=== PATIENT | male | born 1995 | race African-American/Black ===

== ENCOUNTER 2018-08-02 11:54 | Emergency (ER) | payer OTHER, SELFPAY ==
[2018-08-02 11:58] VITALS: BP 147/88; PULSE 75; RESP 16; TEMP 36.5; O2SAT 99; BMI 19.3
[2018-08-02 12:19] LABS: Bacteria Urine None Seen; RBC Urine None Seen (0-5/HPF)
[2018-08-02 12:34] LABS: Culture Indicated Urine Specimen Cultured; WBC Urine 5-10/HPF (0-5/HPF)
--- NOTE | 2018-08-02 13:03 | ED_ITS ---
HPI - Male Genitourinary <HOWIE Velasquez - Last Filed: 08/02/18 14:28> General Chief complaint: Urogenital-Male Stated complaint: STD Time Seen by Provider: 08/02/18 12:19 Source: patient Mode of arrival: ambulatory Limitations: no limitations History of Present Illness HPI Narrative: The patient is a 22-year-old male nonsmoker who presents with a chief complaint of concern for sexually transmitted infection. He states he was at home in [place] and had unprotected sex with his ex girlfriend. Since then he states that his urine has changed collar and he has noticed some creamy discharge from his penis. He denies any fevers nausea vomiting diarrhea abdominal pain dysuria urgency or frequency. He states he is worried about Chlamydia or gonorrhea. He states that his ex-girlfriend has also reported some urinary changes. He denies any testicular pain. He denies any other sexual partners since his possible exposure. Related Data Home Medications Medication Instructions Recorded Confirmed No Known Home Medications 08/02/18 08/02/18 Allergies Allergy/AdvReac Type Severity Reaction Status Date / Time No Known Drug Allergies Allergy Verified 08/02/18 12:02 Review of Systems <HOWIE Velasquez - Last Filed: 08/02/18 14:28> Review of Systems GENERAL: Denies chills, fatigue, malaise, fever, sweats. HEENT: Denies sinus pain, ear pain, sore throat, difficulty swallowing, dizziness. RESPIRATORY: Denies dyspnea, cough, wheezing, hemoptysis, sputum. CARDIOVASCULAR: Denies chest pain, palpitations, orthopnea, edema, GASTROINTESTINAL: Denies nausea, vomiting, abdominal pain, diarrhea, constipation, melena. : See HPI MUSCULOSKELETAL: denies weakness, joint pain, or bony pain SKIN: Denies rash, skin lesions, or other NEUROLOGIC: Denies weakness, headache, numbness, change in speech, confusion, seizures, incoordination. PSYCHIATRIC: No concerning psychosocial issues. 12 point review of systems is negative except for those stated above PFSH <HOWIE Velasquez - Last Filed: 08/02/18 14:28> Social History Smoking Status: Never smoker Social History Smoking Status: Never smoker Exam <HOWIE Velasquez - Last Filed: 08/02/18 14:28> Narrative Exam Narrative: GENERAL: This is a well-nourished, well-developed patient, no acute distress HEAD: Atraumatic. Normocephalic. No temporal or scalp tenderness. EYES: Pupils equal round and reactive. Extraocular motions intact. No scleral icterus. No injection or drainage. ENT: Nose without bleeding, purulent drainage or septal hematoma. Throat without erythema, tonsillar hypertrophy or exudate. Uvula midline. Airway patent. NECK: Trachea midline. No JVD or lymphadenopathy. Supple, nontender, no meningeal signs. CARDIOVASCULAR: Regular rate and rhythm without murmurs, gallops, or rubs. RESPIRATORY: Clear to auscultation. Breath sounds equal bilaterally. No wheezes, rales, or rhonchi. No cough. No increased respiratory effort. GASTROINTESTINAL: Abdomen soft, non-tender, nondistended. No hepato- splenomegaly, or palpable masses. No guarding. Active bowel sounds. EXTREMITIES: No clubbing, cyanosis, or edema. No joint tenderness, effusion, or edema noted. BACK: Nontender without deformity or crepitance. No flank tenderness. NEURO: AOx3. SKIN: No rash or erythema. : exam performed with Bryan MATHUR fire claims adjuster. No visible penile discharge. No pain to testicular palpation. No rashes or ulcerations noted Initial Vital Signs Initial Vital Signs: Vital Signs Temperature 97.7 F 08/02/18 11:58 Pulse Rate 75 08/02/18 11:58 Respiratory Rate 16 08/02/18 11:58 Blood Pressure 147/88 H 08/02/18 11:58 Pulse Oximetry 99 08/02/18 11:58 <Sharyn Hancock DO - Last Filed: 08/05/18 21:41> Initial Vital Signs Initial Vital Signs: Vital Signs Temperature 97.7 F 08/02/18 11:58 Pulse Rate 75 08/02/18 11:58 Respiratory Rate 16 08/02/18 11:58 Blood Pressure 147/88 H 08/02/18 11:58 Pulse Oximetry 99 08/02/18 11:58 Course <HOWIE Velasquez - Last Filed: 08/02/18 14:28> Orders Ordered: Discontinued Medications Azithromycin (Zithromax) 1,000 mg PO NOW ONE Stop: 08/02/18 13:41 Last Admin: 08/02/18 14:09 Dose: 1,000 mg Ceftriaxone Sodium (Rocephin) 250 mg IM NOW ONE Stop: 08/02/18 13:41 Last Admin: 08/02/18 14:11 Dose: 250 mg Vital Signs - 8 hr 08/02/18 11:58 08/02/18 13:35 Temperature 97.7 F 98.5 F Pulse Rate 75 68 Respiratory Rate 16 16 Blood Pressure 147/88 H Blood Pressure [Right Arm] 104/82 Pulse Oximetry 99 100 <Sharyn Hancock DO - Last Filed: 08/05/18 21:41> Orders Ordered: Discontinued Medications Azithromycin (Zithromax) 1,000 mg PO NOW ONE Stop: 08/02/18 13:41 Last Admin: 08/02/18 14:09 Dose: 1,000 mg Ceftriaxone Sodium (Rocephin) 250 mg IM NOW ONE Stop: 08/02/18 13:41 Last Admin: 08/02/18 14:11 Dose: 250 mg Vital Signs - 8 hr 08/02/18 11:58 08/02/18 13:35 Temperature 97.7 F 98.5 F Pulse Rate 75 68 Respiratory Rate 16 16 Blood Pressure 147/88 H Blood Pressure [Right Arm] 104/82 Pulse Oximetry 99 100 MDM - Male Genitourinary <HOWIE Velasquez - Last Filed: 08/02/18 14:28> Lab Data Lab Results 08/02/18 08/02/18 Range/Units 12:10 12:30 Urine RBC None seen (0-5/HPF) Urine WBC 5-10/hpf H (0-5/HPF) Urine Bacteria None seen (None) Ur Culture Indicated? Specimen cultured Ur Chlamydia DNA (PCR) Detected H N gonorrhoeae DNA (PCR) Not detected Urine Dip Bedside Urine Glucose Negative Bedside Urine Bilirubin - Negative Bedside Urine Ketone - Negative Urine Specific [place] 1.010 Bedside Urine Occult Blood - Negative Bedside Urine pH 8.0 Bedside Urine Protein - Negative Bedside Urine Urobilinogen - Negative Bedside Urine Nitrite - Negative Bedside Urine Leukocytes ++ 125 Esterase MDM Narrative Medical decision making narrative: The patient is a 22-year-old male who presents with penile discharge and concerned about sexually transmitted infections. A urine was obtained and gonorrhea chlamydia testing was sent. Given the long duration of time to wait for test results, I offered to treat the patient then call him with results. He is nontoxic-appearing in the emergency department and acting well. The patient later came back positive for Chlamydia. I informed of this, encourage safe sex practices and contacting his sexual partners. Patient has no questions or concerns upon discharge. Patient plans on following up with primary care provider. I encouraged coming back to the emergency department for any acute concerns. <Sharyn Hancock DO - Last Filed: 08/05/18 21:41> Lab Data Lab Results 08/02/18 08/02/18 Range/Units 12:10 12:30 Urine RBC None seen (0-5/HPF) Urine WBC 5-10/hpf H (0-5/HPF) Urine Bacteria None seen (None) Ur Culture Indicated? Specimen cultured Ur Chlamydia DNA (PCR) Detected H N gonorrhoeae DNA (PCR) Not detected Urine Dip Bedside Urine Glucose Negative Bedside Urine Bilirubin - Negative Bedside Urine Ketone - Negative Urine Specific [place] 1.010 Bedside Urine Occult Blood - Negative Bedside Urine pH 8.0 Bedside Urine Protein - Negative Bedside Urine Urobilinogen - Negative Bedside Urine Nitrite - Negative Bedside Urine Leukocytes ++ 125 Esterase Discharge Plan Departure Patient Disposition: Home Clinical Impression: Contact with and (suspected) exposure to infections with a predominantly sexual mode of transmission, Chlamydia Discharge Date/Time: 08/02/18 14:30 Interventions: ED Discharge Assessment Last Done: 08/02/18 14:29 Instructions: Facts About Sexually Transmitted Infections, How to Detect and Treat STDs, Chlamydia: The Silent STD, DI for Gonorrhea, DI for Chlamydia Activity Restrictions/Additional Instructions: Given your symptoms, we elected to treat you for gonorrhea and chlamydia. I will call you with your test results. We also have a urine culture pending at this point time. Please follow up with primary care provider as we discussed, I recommend that you be tested for other sexually transmitted infections as well. Please come back to the emergency department for any acute concerns such as chest pain, shortness of breath, inability keep down fluids etc. Prescriptions: No Action No Known Home Medications RF: 0 Referrals: Jacoby Walters [Primary Care Provider] - <Sharyn Hancock DO - Last Filed: 08/05/18 21:41> Cosign ED Attending Cosignature Attestation: I was immediately available in the department for consultation. Documentation has been reviewed. I agree with assessment and plan.
[2018-08-02 13:35] VITALS: BP 104/82; PULSE 68; RESP 16; TEMP 36.9; O2SAT 100
[2018-08-02] MEDS: AZITHROMYCIN 250 MG TABLET 1000 MG PO (14:09)
[2018-08-02 14:10] LABS: Urine N gonorrhoeae NOT DETECTED
[2018-08-02] MEDS: cefTRIAXone 500 MG VIAL 250 MG IM (14:11)
[2018-08-02 14:22] LABS: Urine Chlamydia DETECTED
[2018-08-02 14:29] VITALS: BP 113/78; PULSE 65; RESP 16; TEMP 36.9; O2SAT 100
== END 2018-08-02 14:30 | disposition home or self-care (01) ==
PROVIDERS: Emergency Medicine; Emergency Provider Nurse Practitioner Family; PCP General Practice
DX: A74.9 Chlamydial infection, unspecified (principal); Z20.2 Contact with and (suspected) exposure to infections with a predominantly sexual mode of transmission
CPT/HCPCS: 81003; 81015; 87086; 87491; 87591; 96372; 99283; J0696

== ENCOUNTER 2019-05-19 20:59 | Emergency (ER) | payer OTHER, SELFPAY ==
[2019-05-19 21:09] VITALS: BP 123/73; PULSE 61; RESP 16; TEMP 36.7; O2SAT 100
--- NOTE | 2019-05-19 23:53 | ED.BACK ---
HPI - Back Pain/Injury General Chief Complaint: Back Pain/Injury Stated Complaint: back pain Time Seen by Provider: 05/19/19 23:51 Source: patient and other (Friend at bedside) Mode of arrival: Ambulatory Limitations: no limitations History of Present Illness HPI Narrative: This is a 23-year-old male comes emergency department with complaint of low back pain. Patient states little bit more on the right than left but is on both sides. He states it does not radiate down his legs. He denies any fevers. He denies any bowel or bladder incontinence, he denies any saddle anesthesia. He denies any numbness, weakness or tingling. States that he was playing basketball several days ago and noticed a little bit of tightness. He also often bends and lifts heavy equipment on a frequent basis although he does not recall any particular event that increased his back pain or caused it. He has not really had any back issues in the past. He states movement does make it worse. He has not tried anything at home for pain. He denies any other medical issues, no prior surgeries, no allergies to medications. States he has a right knee and has been told that it is ?bone on bone? and that if he continued to have problems to return for recheck. He states that does sometimes hurt and might changes gait. Related Data Previous Rx's Medication Instructions Recorded cyclobenzaprine 10 mg PO TID PRN #10 tab 05/20/19 Allergies Allergy/AdvReac Type Severity Reaction Status Date / Time No Known Drug Allergies Allergy Verified 08/02/18 12:02 Review of Systems Review of Systems ROS Unobtainable: All systems reviewed & are unremarkable except as noted in HPI and below Patient History Social History Smoking Status: Never smoker Smoking Status: Never smoker alcohol intake frequency: a few times a month Substance Use Type: does not use Exam Narrative Exam Narrative: GENERAL: Alert and oriented x three, tall, thin well-appearing male in mild distress. HEENT: Head normocephalic, atraumatic, EOMI, pupils reactive, face symmetric, moist mucous membranes NECK: Supple, full range of motion CARDIOVASCULAR: Regular rate and rhythm without murmurs, rubs or gallops. RESPIRATORY: Breath sounds equal bilaterally, no wheezes rales or rhonchi. ABDOMEN: Soft, nontender. Normoactive bowel sounds all 4 quadrants. No guarding or rebound, rigidity, no mass : No CVA tenderness BACK: No cervical, thoracic or lumbar vertebral point tenderness. Patient has muscle tightness particularly on the right lower lumbar region but also somewhat on the left lower lumbar. Patient has decreased range of motion. Patient's gait is normal. Rectal exam is deferred. Muscle strength is 5/5 in lower extremities, DTRs are 2/4 and lower extremities. Dorsalis pedis and tibialis pulses are 2+ and lower extremities. Sensation is intact in the lower extremities. EXTREMITIES: Normal range of motion, no clubbing or edema. Neurovascularly intact NEUROLOGICAL: Cranial nerves II through XII grossly intact. Moving all extremities SKIN: Warm, dry, no petechiae, no rashes or lesions. Initial Vital Signs Initial Vital Signs: Vital Signs Temperature 98.1 F 05/19/19 21:09 Pulse Rate 61 05/19/19 21:09 Respiratory Rate 16 05/19/19 21:09 Blood Pressure 123/73 05/19/19 21:09 Pulse Oximetry 100 05/19/19 21:09 Course Orders Ordered: Discontinued Medications Cyclobenzaprine HCl (Flexeril) 10 mg PO NOW ONE Stop: 05/20/19 00:09 Last Admin: 05/20/19 00:26 Dose: 10 mg Documented by: LUCILA Ibuprofen (Advil) 800 mg PO NOW ONE Stop: 05/20/19 00:09 Last Admin: 05/20/19 00:26 Dose: 800 mg Documented by: LUCILA Vital Signs Vital signs: Vital Signs - 8 hr 05/19/19 21:09 05/20/19 00:30 Temperature 98.1 F Pulse Rate 61 70 Respiratory Rate 16 18 Blood Pressure 123/73 Blood Pressure [Right Arm] 128/73 Pulse Oximetry 100 99 MDM - Back Pain/Injury Lab Data Labs: Urine Dip Bedside Urine Glucose Negative Bedside Urine Bilirubin - Negative Bedside Urine Ketone +/- 5 Urine Specific [place] 1.025 Bedside Urine Occult Blood - Negative Bedside Urine pH 6.0 Bedside Urine Protein +/- 15 Bedside Urine Urobilinogen - Negative Bedside Urine Nitrite - Negative Bedside Urine Leukocytes - Negative Esterase MDM Narrative Medical decision making narrative: Patient deferred any injection medication was given ibuprofen as well as muscle relaxer. A prescription for Flexeril. Recommend to follow up with primary care for possibly PT is he has had any issues in this may be contributing to his back pain. He has no red flag symptoms at this time that would make appropriate for imaging. Discussed red flag symptoms and strict return precautions with the patient and he expressed understanding. Discharge Plan Departure Patient Disposition: Home Clinical Impression: Low back pain Qualifiers: Chronicity: acute Back pain laterality: bilateral Sciatica presence: without sciatica Qualified Code(s): M54.5 - Low back pain Discharge Date/Time: 05/20/19 00:36 Instructions: DI for Low Back Pain Activity Restrictions/Additional Instructions: Follow-up with your physician in the next week for recheck. You may benefit from physical therapy if you continue to have symptoms and I would discuss this option with your physician. You may take ibuprofen up to 800 mg every 8 hours as needed for pain. You may also take Tylenol up to a 1000 mg every 8 hours as needed for pain with this medication. Take Flexeril 1 tablet every 8 hours as needed for muscle spasm, this medication can make you sleepy do not drive, perform hazardous activities or make any major decisions while taking it. Prescription was sent to the [facility]. Return to the ER for fevers greater 100.4 F, loss of bowel or bladder control, loss of sensation, new weakness, numbness, saddle anesthesia or loss of sensation in your groin or other new or concerning symptoms. Prescriptions: New cyclobenzaprine 10 mg tablet 10 mg PO TID PRN (Reason: muscle spasm) Qty: 10 RF: 0 Referrals: Jacoby Walters [Primary Care Provider] -
[2019-05-20] MEDS: IBUPROFEN 400 MG TABLET 800 MG PO (00:26)
[2019-05-20] MEDS: CYCLOBENZAPRINE 10 MG TABLET PO (00:26)
[2019-05-20 00:30] VITALS: BP 128/73; PULSE 70; RESP 18; O2SAT 99
== END 2019-05-20 00:36 | disposition home or self-care (01) ==
PROVIDERS: Emergency Provider Emergency Medicine; PCP General Practice
DX: M54.5 Low back pain (principal)
CPT/HCPCS: 81003; 99283